=== PATIENT | male | born 1985 | race Caucasian/White ===

== ENCOUNTER → 2024-06-12 | Day surgery (SDC) | payer BC ==
[2024-06-08 09:58] VITALS: BMI 31.6
[~2024-06-12] MED LIST: HYDROmorphone 0.5 MG/0.5 ML SYRINGE IVP PRN; LACTATED RINGERS 1,000 ML IV SCH; LIDOCAINE 1% (10MG/ML) FOR IV START INTRADERMA PRN; LIDOCAINE 1% INJ 10MG/ML (20 ML MDV) ONE; MIDAZOLAM 2 MG/2 ML VIAL ONE; PROPOFOL 10 MG/ML 20 ML VIAL IV ONE; Pre Op ABX Message 1 EACH MISC MISCELLANE ONE; SUCCINYLCHOLINE CHLORIDE 200 MG/10 ML VIAL IV ONE; fentaNYL (PF) 50 MCG/ML 2 ML AMP ONE
[2024-06-12 12:18] VITALS: RESP 16
[2024-06-12] MEDS: LACTATED RINGERS 1,000 ML IV ONE (12:18)
[2024-06-12] MEDS: ONDANSETRON 4 MG/2 ML VIAL IVP ONE (12:28)
[2024-06-12] MEDS: DEXAMETHASONE SOD PHOSPHATE 4 MG/ML 1 ML VIAL IVP STA (12:28)
[2024-06-12] MEDS: HEPARIN SODIUM,PORCINE 5,000 UNIT/ML 1 ML VIAL SQ STA (12:31)
[2024-06-12] MEDS: ceFAZolin 2 GM in DEXTROSE 5% IN WATER 50 ML IVPB ONE (12:40)
[2024-06-12] MEDS: LIDOCAINE 1%-EPI 1:100,000 20 ML VIAL SQ ONE (13:05)
[2024-06-12 13:38] VITALS: TEMP 97
[2024-06-12] MEDS: ONDANSETRON ODT 4 MG TAB PO ONE (15:05)
[2024-06-12 15:21] VITALS: BP 120/77; PULSE 80
--- NOTE | 2024-07-16 16:26 | P.OP ---
Date of Procedure: 06/12/24 Preoperative Diagnosis: Abdominal Wall Mass Postoperative Diagnosis: Abdominal Wall Lipoma Procedure(s) Performed: Excision of Abdominal Wall Mass Anesthesia: DANA Surgeon: Salvador Pinzon Estimated Blood Loss (ml): 10 Pathology: other (Abdominal Wall Mass) Condition: stable Disposition: PACU Description of Procedure: The patient was brought to the operating suite and placed in supine position. Anesthesia was given and endotracheal intubation was performed. The abdomen was prepped and draped in usual sterile fashion. A timeout was performed. A #15 blade was used to make an incision over the mass. Bovie electrocautery was used to dissect down through the subcutaneous fat to the level of the mass. The mass which appeared to be a lipoma was grasped with a clamp. The attachment and adhesions to the mass were dissected off with bovie until the mass was freed and passed off as a specimen. The incision was closed in layers using #3-0 and #4-0 vicryl suture. Skin glue was applied. The patient tolerated the procedure well and was sent to the PACU in stable condition.
== END ==
LOC: OR 12:05
PROVIDERS: ATTEND Surgery
DX: D17.1 Benign lipomatous neoplasm of skin and subcutaneous tissue of trunk (principal)
CPT/HCPCS: 88304; 11404; J2250; J0330; J1644; J1100; J0690; J2405; J2003; J3010; J2704